=== PATIENT | female | born 1945 | race Two or more races ===

== ENCOUNTER 2017-08-16 09:52 | Outpatient (CLI) | payer OTHER | END 2017-08-16 16:16 | disposition home or self-care (01) | LOC: SONOGRAMA 09:52 | DX: E04.2 Nontoxic multinodular goiter (principal) ==

== ENCOUNTER 2021-05-05 08:28 | Outpatient (CLI) | payer OTHER | END 2021-05-05 08:32 | disposition home or self-care (01) | LOC: RX STUDY 08:28 | PROVIDERS: ATTEND Surgery | DX: K21.9 Gastro-esophageal reflux disease without esophagitis (principal) ==